=== PATIENT | male | born 1990 | race Caucasian/White ===

== ENCOUNTER 2016-08-25 09:54 | Inpatient (IN) | payer SELFPAY ==
[~2016-08-25] VITALS: Ht 182.9 cm; Wt 78.2 kg
[~2016-08-25 09:54] MED LIST: NAPROXEN500 MG PO; VALIUM5 MG PO
[2016-08-25 11:57] LABS: HEMATOCRIT 46.9 % (38.0-50.0); MCH 30.7 PG (29.0-34.0); MCHC 34.1 G/DL (30.0-36.0); MCV 89.8 FL (86-99); MEAN PLAT.VOLUME 9.5 uM^3 (9.0-12.4); PLATELET COUNT 278 K/uL (156-360); RBC DIS.WIDTH-CV 12.6 % (11.8-14.6); RBC DIS.WIDTH-SD 41.6 % (39-53); RED BLOOD COUNT 5.22 M/uL (4.00-5.50); WHITE BLOOD COUNT 8.5 K/uL (4.1-10.2)
[2016-08-25 12:07] LABS: CHLORIDE 104 mEq/L (99-109); POTASSIUM 3.8 mEq/L (3.7-5.4); SODIUM 142 mEq/L (136-147)
[2016-08-25 12:08] LABS: GLUCOSE 101 mg/dL (70-99)
[2016-08-25 12:10] LABS: ANION GAP 13 MEQ/L (2-14)
[2016-08-25 12:11] LABS: SERUM ETHYL ALCOHOL < 10 mg/dL
[2016-08-25 12:12] LABS: GFR ESTIMATE (CALCULATED) > 59 mL/min/
[2016-08-25 12:13] LABS: UREA NITROGEN (BUN) 9 mg/dL (9-23)
[2016-08-25 13:01] LABS: ADD MEDTOX COMMENT Y; AMPHETAMINE NEGATIVE (500 ng/mL); BARBITURATES NEGATIVE (200 ng/mL); BENZODIAZEPINES NEGATIVE (150 ng/mL); COCAINE NEGATIVE (150 ng/mL); INTERNAL CONTROLS VALID? YES; METHADONE NEGATIVE (200 ng/mL); METHAMPHETAMINE NEGATIVE (500 ng/mL); OPIATES (MORPHINE) NEGATIVE (100 ng/mL); OXYCODONE NEGATIVE (100 ng/mL); PHENCYCLIDINE NEGATIVE (25 ng/mL); PROPOXYPHENE NEGATIVE (300 ng/mL); THC CANNABINOIDS PRESUMPTIVE POSITIVE (50 ng/mL); TRICYCLIC ANTIDEPRESSANTS NEGATIVE (300 ng/mL)
[2016-08-25 16:09] VITALS: BP 149/92; BP 149/93
[2016-08-25] MEDS ORDERED: DEPAKOTE ER500 MG PO (16:55)
[2016-08-26 07:27] VITALS: BP 107/58
[2016-08-26 15:40] VITALS: BP 128/78
[2016-08-27 07:55] VITALS: BP 120/60
[2016-08-27] MEDS ORDERED: DEPAKOTE ER500 MG PO (09:38)
== END 2016-08-27 11:29 | disposition home or self-care (01) | DRG 885 ==
LOC: EME 09:54 → EDOF 13:24 → 1WEST 13:24
DX: F31.60 Bipolar disorder, current episode mixed, unspecified (principal); R45.850 Homicidal ideations; F41.9 Anxiety disorder, unspecified; F12.10 Cannabis abuse, uncomplicated; F10.10 Alcohol abuse, uncomplicated; Z62.810 Personal history of physical and sexual abuse in childhood; Z56.0 Unemployment, unspecified
CPT/HCPCS: 80048; 84999; 85027; 90839; 99281; 99285; G0480

== ENCOUNTER 2017-05-14 19:28 | Emergency (ER) | payer BC ==
[~2017-05-14] VITALS: Ht 182.9 cm; Wt 78.9 kg
[~2017-05-14 19:28] MED LIST changes: +DEPAKOTE ER500 MG PO
[2017-05-14 20:14] LABS: APPEARANCE CLEAR ((CLEAR)); BILIRUBIN NEGATIVE; BLOOD NEGATIVE; COLOR YELLOW ((YELLOW)); GLUCOSE (STRIP) NEGATIVE; KETONES NEGATIVE; LEUKOCYTES SMALL; NITRITE NEGATIVE; PROTEIN (STRIP) 30; SPECIFIC GRAVITY 1.032 (1.000-1.030)
[2017-05-14 20:46] LABS: BACTERIA NONE SEEN /HPF; EPITHELIAL CELLS NONE SEEN /HPF; MUCUS 4+ /LPF; RED BLOOD CELLS 0-5 /HPF (0-5); UCUL ADDED? NO; WHITE BLOOD CELLS 0-5 /HPF (0-5)
[2017-05-14 20:46] LABS: HEMATOCRIT 42.6 % (38.0-50.0); HEMOGLOBIN 15.1 G/DL (12.5-16.6); MCH 32.1 PG (29.0-34.0); MCHC 35.4 G/DL (30.0-36.0); MCV 90.4 FL (86-99); PLATELET COUNT 240 K/uL (156-360); RBC DIS.WIDTH-CV 12.5 % (11.8-14.6); RBC DIS.WIDTH-SD 41.4 % (39-53); RED BLOOD COUNT 4.71 M/uL (4.00-5.50)
[2017-05-14 20:57] LABS: ALBUMIN 4.5 g/dL (3.2-4.8)
[2017-05-14 20:58] LABS: CHLORIDE 105 mEq/L (99-109); SODIUM 140 mEq/L (136-147)
[2017-05-14 21:00] LABS: GLUCOSE 104 mg/dL (70-99); TOTAL PROTEIN 7.4 g/dL (6.4-8.3)
[2017-05-14 21:02] LABS: TOTAL BILIRUBIN 1.6 mg/dL (0.0-1.0)
[2017-05-14 21:03] LABS: ALKALINE PHOSPHATASE 77 IU/L (3-129)
[2017-05-14 21:04] LABS: CREATININE 0.8 mg/dL (0.6-1.3); GFR ESTIMATE (CALCULATED) > 59 mL/min/ (58.99-99999)
[2017-05-14 21:05] LABS: AST (GOT) 18 IU/L (2-34); UREA NITROGEN (BUN) 15 mg/dL (9-23)
[2017-05-14 21:06] LABS: ALT (GPT) 19 IU/L (3-49)
[2017-05-14 21:07] LABS: LIPASE 19 U/L (1.0-51.0)
[2017-05-14 22:27] LABS: AMPHETAMINE NEGATIVE (500 ng/mL); BENZODIAZEPINES NEGATIVE (150 ng/mL); COCAINE NEGATIVE (150 ng/mL); METHAMPHETAMINE NEGATIVE (500 ng/mL); OPIATES (MORPHINE) NEGATIVE (100 ng/mL); PHENCYCLIDINE NEGATIVE (25 ng/mL); THC CANNABINOIDS PRESUMPTIVE POSITIVE (50 ng/mL); TRICYCLIC ANTIDEPRESSANTS NEGATIVE (300 ng/mL)
[2017-05-14 22:28] LABS: BARBITURATES NEGATIVE (200 ng/mL); BUPRENORPHINE NEGATIVE (10 ng/mL); METHADONE NEGATIVE (200 ng/mL); OXYCODONE NEGATIVE (100 ng/mL); PROPOXYPHENE NEGATIVE (300 ng/mL)
[2017-05-14] MEDS ORDERED: BENTYL20 MG PO (23:25)
[2017-05-14] MEDS ORDERED: ZOFRAN ODT8 MG PO (23:25)
[2017-05-14] MEDS ORDERED: CAPSAICIN57 GM TP (23:28)
[2017-05-14 23:36] VITALS: BP 113/66
== END 2017-05-14 23:40 | disposition home or self-care (01) ==
LOC: EME 19:28
DX: R11.2 Nausea with vomiting, unspecified (principal); T40.7X5A Adverse effect of cannabis (derivatives), initial encounter; R10.84 Generalized abdominal pain; G89.29 Other chronic pain; R19.7 Diarrhea, unspecified; F12.90 Cannabis use, unspecified, uncomplicated; F17.200 Nicotine dependence, unspecified, uncomplicated
CPT/HCPCS: 74021; 80053; 81003; 83690; 84999; 85027; 99281; 99284; J0500; J1885; J2405; J7030

== ENCOUNTER 2017-10-19 17:41 | Emergency (ER) | payer BC ==
[~2017-10-19] VITALS: Ht 182.9 cm; Wt 73.2 kg
[~2017-10-19 17:41] MED LIST changes: +BENTYL20 MG PO; +CAPSAICIN57 GM TP; +ZOFRAN ODT8 MG PO
[2017-10-19] MEDS ORDERED: FLEXERIL10 MG PO (19:20)
[2017-10-19] MEDS ORDERED: LIDODERM 5% P1 PATCH TD (19:20)
[2017-10-19 19:40] VITALS: BP 117/72
== END 2017-10-19 19:41 | disposition home or self-care (01) ==
LOC: EME 17:41
DX: M54.42 Lumbago with sciatica, left side (principal); F32.9 Major depressive disorder, single episode, unspecified; F31.9 Bipolar disorder, unspecified; F17.200 Nicotine dependence, unspecified, uncomplicated
CPT/HCPCS: 99281; 99283; J1100; J1885